=== PATIENT | female | born 1995 | race Two or more races ===

== ENCOUNTER 2024-12-13 11:51 | Inpatient (IN) | payer MEDICAID, OTHER ==
[2024-12-10 15:34] VITALS: PULSE 71
[~2024-12-13] VITALS: Ht 167.6 cm; Wt 48.5 kg
[2024-12-13] MEDS: levETIRAcetam 1000 mg/100ml 100 ML IV ONE (12:00)
--- NOTE | 2024-12-13 12:00 | ED.PDOC ---
History of Present Illness HPI Comments 29-year-old female with PMHx Seizures brought in by EMS presents with a chief complaint of seizure activity x 15 minutes ago. 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 Witnesses state that seizure lasted approximately 1 minute. Patient mentions that she take Keppra and has a neurolog ist. Last seizure was in June 2024. All vital signs stable. 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: Denies all DATA OPERATIONS DIRECTOR Hx Family History Family History: Reviewed,noncontributory to illness Social History Smoker: Non-Smoker Alcohol: Occasionally Drugs: Marijuana Lives In: Home Constitutional: denies: chills, diaphoresis, fatigue, fever, malaise, sweats, weakness, others EENTM: denies: blurred vision, double vision, ear bleeding, ear discharge, ear drainage, ear pain, ear ringing, eye pain, eye redness, hearing loss, mouth pain, mouth swelling, nasal discharge, nose bleeding, nose congestion, nose pain, photophobia, tearing, throat pain, throat swelling, voice changes, others Respiratory: denies: cough, hemoptysis, orthopnea, SOB at rest, shortness of breath, SOB with excertion, stridor, wheezing, others Cardiovascular: denies: chest pain, dizzy spells, diaphoresis, Dyspnea on exertion, edema, irregular heart beat, left arm pain, lightheadedness, palpitations, PND, syncope, others Gastrointestinal: denies: abdomen distended, abdominal pain, blood streaked bowels, constipated, diarrhea, dysphagia, difficulty swallowing, hematemesis, melena, nausea, poor appetite, poor fluid intake, rectal bleeding, rectal pain, vomiting, others Genitourinary: denies: abnormal vagina bleeding, burning, dyspareunia, dysuria, flank pain, frequency, hematuria, incontinence, pain, , vagina discharge, urgency, others Neurological: reports: seizure; denies: dizziness, fainting, headache, left sided numbness, left sided weakness, numbness, paresthesia, pre-existing deficit, right sided numbness, right sided weakness, speech problems, tingling, tremors, weakness, others Musculoskeletal: denies: back pain, gout, joint pain, joint swelling, muscle pain, muscle stiffness, neck pain, others Integumetry: denies: bruises, change in color, change in hair/nails, dryness, laceration, lesions, lumps, rash, wounds, others Allergic/Immunocompromised: denies: Difficulty Healing, Frequent Infections, Hives, Itching, others Hematologic/Lymphatic: denies: anemia, blood clots, easy bleeding, easy bruising, swollen glands, others Endocrine: denies: excessive hunger, excessive sweating, excessive thirst, excessive urination, flushing, intolerance to cold, intolerance to heat, unexplained weight gain, unexplained weight loss, others Psychiatric: denies: anxiety, bipolar disorder, depression, hopeless, panic disorder, schizophrenia, sleepless, suicidal, others All Other Systems: Reviewed and Negative Physical Exam General Appearance: No Apparent Distress HEENT: Normal ENT Inspection, Pharynx Normal, TMs Normal Neck: Full Range of Motion, Non-Tender, Normal, Normal Inspection Respiratory: Chest Non-Tender, Lungs Clear, No Accessory Muscle Use, No Respiratory Distress, Normal Breath Sounds Cardiovascular: No Edema, No JVD, No Murmur, No Gallop, Normal Peripheral Pulses, Regular Rate/Rhythm Breast Exam: Deferred Gastrointestinal: No Organomegaly, Non Tender, No Pulsatile Mass, Normal Bowel Sounds, Soft Genitalia: Deferred Pelvic: Deferred Rectal: Deferred Extremities: No calf tenderness, Normal capillary refill, Normal inspection, Normal range of motion, Non-tender, No pedal edema Musculoskeletal : Apperance: Normal Neurologic: Alert, 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 Was a procedure done?: No Differential Dx Considerations may include: Breakthrough seizure, headache X-Ray, Labs, Meds, VS Vital Signs Date Time Temp Pulse Resp B/P (MAP) Pulse Ox O2 Delivery O2 Flow Rate FiO2 12/13/24 12:31 98.7 102 18 130/78 (95) 99 Lab Test 12/13/24 12:30 Range/Units POC Glucose 118 H 70-106 mg/dl Current Medications Medications (Trade) Dose Ordered Sig/Sonia Route Start Time Stop Time Status Last Admin Levetiracetam 100 ml @ 400 mls/hr ONCE ONCE IV 12/13/24 12:00 12/13/24 12:14 DC 12/13/24 12:00 The patient was being given acetaminophen 650 mg for her headache The patient was given 1 g of Keppra IV piggyback We did advise the patient that sometimes the marijuana can lower the threshold for seizures The mother is at bedside and will be taking her home The patient will continue taking her Keppra at 1750 mg twice a day. The patient was completely at baseline at this time The patient is going to contact her neurologist upon being discharged Time of 1ST Reevaluation: 12:23 Reevaluation 1ST: Unchanged Patient Education/Counseling: Diagnosis, Treatment, Prognosis, Need For Follow Up Family Education/Counseling: Diagnosis, Treatment, Prognosis, Need For Follow Up Departure 1 Departure Time of Disposition: 13:40 Impression: Primary Impression: Breakthrough seizure Disposition: 01 HOME / SELF CARE / HOMELESS Condition: Fair Discharged With: Self, Relative (Mother) Critical Care Note Critical Care Time?: No Stability Stability form required: No Heart Score Heart Score: Heart Score Response (Comments) Value History N/A 0 EKG N/A 0 Age N/A 0 Risk Factors N/A 0 Troponin N/A 0 Total 0 I personally scribed for HARLEY SPENCER MD ([email or web address]) on 12/13/24 at 12:00. Electronically submitted by Thien Sharma ([email or web address]). HARLEY SPENCER MD Dec 13, 2024 12:00
[2024-12-13 13:48] VITALS: PULSE 79; RESP 93; O2SAT 94
[2024-12-13] MEDS: ACETAMINOPHEN 325 MG TAB PO ONE (13:57)
[2024-12-13] MEDS: LORazepam 2MG/ML-1ML VIAL ONE ×2 (14:35)
[2024-12-13] MEDS: LORazepam 2MG/ML-1ML VIAL IV ONE (15:11)
[2024-12-13 17:56] LABS: Urine Bacteria None Seen /hpf (None Seen)
[2024-12-13 18:28] LABS: Urine Blood Negative /uL (Negative); Urine Clarity Clear (Clear); Urine Color Light-Yellow (Yellow); Urine Mucus FEW (None Seen); Urine Protein, UAD TRACE (Negative); Urine Specific Gravity 1.021 (1.001-1.035); Urine Squamous Epithelial Cell FEW /hpf (<5); Urine Urobilinogen Normal (Negative); Urine WBC 1 /HPF (0-5); Urine pH 6.5 (5.0-9.0)
--- NOTE | 2024-12-13 19:16 | ECG ---
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
[2024-12-13 19:30] VITALS: O2SAT 94
[2024-12-13 21:47] LABS: Basophils # (auto) 0 10 ^3/uL (0-0.2); Basophils % (auto) 0.4 % (0.0-2.0); Eosinophils # (auto) 0.1 10 ^3/uL (0-0.8); Eosinophils % (auto) 0.9 % (0.0-7.0); Hematocrit 40.4 % (36.0-46.0); Hemoglobin 13.4 g/dL (12.2-16.2); Lymphocytes # (auto) 1.7 10 ^3/uL (0.4-5.4); Lymphocytes % (auto) 17.7 % (10.0-50.0); Mean Corpuscular Hgb Conc. 33.2 g/dL (32.0-36.0); Mean Corpuscular Volume 90.5 fL (80.0-100.0); Monocytes # (auto) 0.4 10 ^3/uL (0-1.3); Neutrophils # (auto) 7.5 10 ^3/uL (1.6-8.6); Nucleated Red Blood Cells % 0.1 %; Platelet Count (auto) 276 10^3/uL (140-450); Red Blood Cells 4.46 10^6/uL (4.0-5.20); Red Cell Distribution Width 12.8 % (11.8-14.3); White Blood Cell 9.7 10^3/uL (4.4-10.8)
[2024-12-13 21:50] LABS: Chloride 105 mmol/L (98-107); Potassium 3.9 mmol/L (3.5-5.1); Sodium 136 mmol/L (136-145)
[2024-12-13 21:51] LABS: Anion Gap 8 (5-15); Calcium 9.3 mg/dL (8.7-10.4); Carbon Dioxide 23 mmol/L (20-31)
--- NOTE | 2024-12-13 21:53 | DVH ---
CT BRAIN WITHOUT CONTRAST HISTORY: seizures TECHNIQUE: Axial scans were obtained from the skull base through the vertex without contrast. Sagitta l and coronal reformats were generated. One or more of the following radiation dose reduction techniq ues were used for this examination: automated exposure control, adjustment of the mA and/or kV accord ing to patient size, use of iterative reconstruction technique. COMPARISON: At the time of this review, no prior studies are available for direct comparison. FINDINGS: No acute intracranial hemorrhage or evidence of large vessel territorial infarction identified at thi s time. No midline shift. The basilar cisterns are patent. Phillips-white differentiation appears relat ively preserved. Patchy mucosal thickening in the visualized ethmoidal, maxillary and left sphenoidal sinus. The mast oid air cells are clear. No grossly displaced calvarial fracture is identified. IMPRESSION: No acute intracranial findings. If there is persistent clinical concern, follow-up MRI may be obtain ed to further evaluate. Partially imaged sinus changes which may be sequelae of sinusitis.
[2024-12-13 21:56] LABS: BUN/Creatinine Ratio 11.9 (10.0-20.0); Glucose 88 mg/dL (74-106)
[2024-12-13 22:06] LABS: Blood Urea Nitrogen 7 mg/dL (9-23)
[2024-12-13 22:06] LABS: Amphetamine Screen, Urine Neg (NEGATIVE); Barbiturate Scree,Urine Neg (NEGATIVE); Benzodiazephine Screen, Urine Neg (NEGATIVE); Cannabinoid Screen, Urine Pos (NEGATIVE); Cocaine Screen, Urine Neg (NEGATIVE); Opiate Scree,Urine Neg (NEGATIVE); Phencyclidine Screen, Urine Neg (NEGATIVE)
[2024-12-13] MEDS ORDERED: ONDANSETRON HCL 4 MG/2 ML VIAL IV PRN (22:30)
[2024-12-13] MEDS ORDERED: ACETAMINOPHEN 325 MG TAB PO PRN (22:30)
--- NOTE | 2024-12-13 22:47 | DVHINCON2 ---
Date of service: Dec 13, [address] Montalvo Reason for Consultation Seizure History of Present Illness Ms. Dover is a 29 years old right handed female with a history of migraine headache, seizure, the patient was brought to the [facility] on 12/13/2024 with a chief company of seizure activity rate at this time, she was alert and fully oriented, she provided the following history She was members at working, but the next memory was waking up in the emergency room, with mild tongue biting, and she was said to have seizure. When she was about to be discharge, she was another one in the ER. Since 2016, the patient was has periodic event where she has loss of consciousness, shaking all over body, eyes rolling back, sometimes with tongue biting/incontinence. She has been seen by Dr. Hayes, a local neurologist, and after EEG, MR brain scan, she was diagnosed with seizure disorder in 2022, and the patient has been on Keppra 750 mg b.i.d. since, which may not help the seizure at all. The patient was once on Vimpat 100 mg b.i.d. with better seizure control however the medicine was discontinued because she need her baby. She wants to return to Vimpat. She was seizure once a while, the last time she was seizure was in May 2024, she had 2-3 seizures in 2023 She was periodic one-sided intense headache with photophobia, sonophobia, nausea, her headache last for a few hours, and happens at least twice weekly, the patient was said to have migraine headache, she was on Imitrex 100 mg q.2 hours p.r.n.,, Qulipta 60 mg daily UDS, 12/13/2024: Cannabinoids Urinalysis, 12/13/2024: Unremarkable CBC, 12/13/2024: Unremarkable BMP, 12/13/2024: Unremarkable CT head, 12/13/2024: No acute intracranial findings. If there is persistent cl inical concern, follow-up MRI may be obtained to further evaluate. Partially imaged sinus changes which may be sequelae of sinusitis. Past Medical History Seizure, migraine Past Surgical History Ectopic surgery Family History Hypertension, diabetes Social History She was tobacco smoker, she uses marijuana, no history of drug or alcohol abuse Current Medications Current Medications Medications (Trade) Dose Ordered Sig/Sonia Route PRN Reason Start Time Stop Time Status Last Admin Levetiracetam 100 ml @ 400 mls/hr BID IV 12/14/24 10:00 UNV Ondansetron HCl (Zofran) 4 mg Q6HPRN PRN IV NAUSEA OR VOMITING 12/13/24 22:30 UNV Acetaminophen (Tylenol Tablet) 650 mg Q6HPRN PRN PO PAIN SCALE 1 THRU 6 12/13/24 22:30 UNV Famotidine (Pepcid Tablet) 20 mg DAILY PO 12/14/24 10:00 UNV Review of Systems As above, the other systems are negative Vital Signs Vital Signs Date Time Temp Pulse Resp B/P (MAP) Pulse Ox O2 Delivery O2 Flow Rate FiO2 12/13/24 20:00 91 12/13/24 20:00 98.2 12 107/64 (78) 100 98.2 12/13/24 19:30 Room Air* 0 21 Physical Exam GENERAL EXAM: General: the patient is well developed and nourished. No acute distress. HEENT: Normocephalic, neck is supple, no carotid bruits. No mass. RESPIRATORY: Normal respiratory effort with symmetrical lung expansion. Lungs clear to auscultation. CARDIOVASCULAR: Regular rate and rhythm with no murmurs. S1, S2. ABDOMEN: Soft, nontender, normal bowel sound NEUROLOGICAL: MENTAL STATUS: Awake and alert. Oriented to person, place, time and general circumstances. Able to give personal historu SPEECH, LANGUAGE, HIGHER CORTICAL FUNCTION: no aphasia or dysathria. CRANIAL NERVES: #2: Intact visual jacques to confrontation. The optic discs were sharp. #3,4,6: Pupils are equal, round and reactive. EOMs full and conjugate. No nystagmus. #5: Facial sensation intact in all three divisions bilaterally. Mandibular strength intact. #7: Facial muscles symmetrical and strength intact. #8: Hearing grossly normal to voice. #9,10: Uvula and soft palate rise in the midline. Swallow and voice are normal. #11: Trapezius and sternomastoid strength intact bilaterally. #12: Tongue midline. No fasciculations or atrophy. SENSATION: Sensation to touch and pinprick is normal. MOTOR: Normal tone in the upper and lower extremity. Normal muscle bulk. No fasciculations. No abnormal movements or posturing. Muscle strength of the major groups in the upper extremities is 5/5. Muscle strength of the major groups in the lower extremities is 5/5. REFLEXES: Deep tendon reflexes normal and symmetrical. No pathological reflexe s. CEREBELLAR/COORDINATION: Finger to nose and heel to rodgers are normal bilaterally. GAIT/STATION: deferred. Labs/Diagnostic Data Labs Test 12/13/24 21:20 12/13/24 17:40 12/13/24 12:30 Range/Units White Blood Count 9.7 4.4-10.8 10^3/uL Red Blood Count 4.46 4.0-5.20 10^6/uL Hemoglobin 13.4 12.2-16.2 g/dL Hematocrit 40.4 36.0-46.0 % Mean Corpuscular Volume 90.5 80.0-100.0 fL Mean Corpuscular Hemoglobin 30.0 28.0-32.0 pg Mean Corpuscular Hemoglobin Concent 33.2 32.0-36.0 g/dL Red Cell Distribution Width 12.8 11.8-14.3 % Platelet Count 276 140-450 10^3/uL Mean Platelet Volume 7.7 6.9-10.8 fL Neutrophils (%) (Auto) 77.0 37.0-80.0 % Lymphocytes (%) (Auto) 17.7 10.0-50.0 % Monocytes (%) (Auto) 4.0 0.0-12.0 % Eosinophils (%) (Auto) 0.9 0.0-7.0 % Basophils (%) (Auto) 0.4 0.0-2.0 % Neutrophils # (Auto) 7.5 1.6-8.6 10 ^3/uL Lymphocytes # (Auto) 1.7 0.4-5.4 10 ^3/uL Monocytes # (Auto) 0.4 0-1.3 10 ^3/uL Eosinophils # (Auto) 0.1 0-0.8 10 ^3/uL Basophils # (Auto) 0 0-0.2 10 ^3/uL Nucleated Red Blood Cells 0.1 % Sodium Level 136 136-145 mmol/L Potassium Level 3.9 3.5-5.1 mmol/L Chloride Level 105 98-107 mmol/L Carbon Dioxide Level 23 20-31 mmol/L Anion Gap 8 5-15 Blood Urea Nitrogen 7 L 9-23 mg/dL Creatinine 0.59 0.550-1.02 mg/dL Glomerular Filtration Rate Calc 123 >90 mL/min BUN/Creatinine Ratio 11.9 10.0-20.0 Serum Glucose 88 74-106 mg/dL Calcium Level 9.3 8.7-10.4 mg/dL Urine Color Light-yellow Yellow Urine Clarity Clear Clear Urine pH 6.5 5.0-9.0 Urine Specific [place] 1.021 1.001-1.035 Urine Protein Trace H Negative Urine Ketones Trace Negative Urine Blood Negative Negative /uL Urine Nitrite Negative Negative Urine Bilirubin Negative Negative Urine Urobilinogen Normal Negative mg/dL Urine Leukocyte Esterase Negative Negative /uL Urine RBC None seen 0 - 4 /hpf Urine Microscopic WBC 1 0-5 /HPF Urine Squamous Epithelial Cells Few <5 /hpf Urine Bacteria None seen None Seen /hpf Urine Mucus Few None Seen Urine Glucose Normal Normal mg/dL Urine Test Negative Negative Urine Opiates Screen Neg NEGATIVE Urine Fentanyl Screen Neg NEGATIVE Urine Barbiturates Screen Neg NEGATIVE Urine Phencyclidine Screen Neg NEGATIVE Urine Amphetamines Screen Neg NEGATIVE Urine Benzodiazepines Screen Neg NEGATIVE Urine Cocaine Screen Neg NEGATIVE Urine Cannabinoids Screen Pos NEGATIVE POC Glucose 118 H 70-106 mg/dl Assessment Grand mal seizure Migraine headache Plan/Recommendation Monitoring Supportive treatment Telemetry Keppra 750 mg b.i.d. Vimpat 50 mg b.i.d. Ativan for seizure breakthrough Imitrex 100 mg q.2 hours p.r.n. for headache Qulipta 60 mg q.d.(sample provided) She does not drive Follow up with her doctors and Dr. Freddy GARCIA on discharge More recommendation per clinical course This medical document was created using an electronic medical record system with [email or web address] dictation system. Although this document has been carefully reviewed, there may still be some phonetic and typographical errors. These areas are purely typographical due to imperfections of the software programs, and do not reflect any compromise in the patient's medical care. Plan discussed with: Patient, Spouse, Other TOAN MANE MD Dec 13, 2024 22:47
[2024-12-14] VITALS (9 sets, daily range): BP systolic 96–107; BP diastolic 65–75; PULSE 67–99; RESP 16–20; TEMP 97.6–98.7; O2SAT 94–99
--- NOTE | 2024-12-14 00:33 | DVHHP2 ---
Admitting Diagnosis: Recurrent seizures History of Present Illness History Source: Patient Exam Limitations: No limitations HPI Ms. Dover is a 29 years old female with a history of migraine headache, seizure, who presented to the hospital with a chief complaint of seizure activity at this time, she was alert and fully oriented, she provided the following history, Patient remembers she was at work, but the next memory was waking up in the emergency room, with mild tongue biting, and she was said to have a seizure. When she was about to be discharge from the ER , patient had another witnessed seizure in the ER. Patient reports migraine headaches, patient denies blurry vision, dizziness, lightheadedness, nausea, vomiting. Patient admitted for further evaluation. Home Meds Reported Medications Levetiracetam (Keppra) 500 Mg Tab, 1750 MG PO BID for 30 Days, MG 12/14/24 Sumatriptan Succinate (Sumatriptan Succinate) 100 Mg Tab, 100 MG PO, MG 12/14/24 Folic Acid (Folic Acid) 1 Mg Tab, 1 DAILY 12/14/24 Naproxen (NAPROSYN TABLET) 500 Mg Tb, 1 12/14/24 Baclofen (Baclofen) 10 Mg Tab, 1 12/14/24 Atogepant (Qulipta) 60 Mg Tab 12/14/24 Levetiracetam (Levetiracetam) 750 Mg Tab, 1 12/14/24 Past Medical History Cardiac: No pertinent Hx Pulmonary: No pertinent Hx Central Nervous System: Seizure GI: No pertinent Hx Hemotology/Oncology: No pertinent Hx Hepatobiliary: No pertinent Hx Psychiatric: No pertinent Hx Musculoskeletal: No pertinent Hx Rheumotologic: No pertinent Hx Infectious Disease: No peritnent Hx ENT: No pertinent Hx Renal/: No pertinent Hx Endocrine: No pertinent Hx Dermatology: No pertinent Hx Smoker: No Hx (Negative) Alocohol: None Drugs: Marijuana Lives with: With family Domestic Violence: Neg Review of Systems Constitutional: Other (headaches, seizures ) Ears, Nose, & Throat: No symptom reported Eyes: No symptom reported Pulmonary/Respiratory: No symptom reported Cardiovascular: No symptom reported Gastrointestinal: No symptom reported Genitourinary: No symptom reported Musculoskeletal: No symptom reported Skin: No symptom reported Psychiatric: No symptom reported Endocrine: No symptom reported Hemotologic/Lymphatic: No symptom reported H&P Exam Vital Signs Vital Signs Date Time Temp Pulse Resp B/P (MAP) Pulse Ox O2 Delivery O2 Flow Rate FiO2 12/14/24 00:00 71 12/13/24 22:00 20 113/71 (85) 96 12/13/24 20:00 98.2 98.2 12/13/24 19:30 Room Air* 0 21 General Appeara: Well developed, Well nourished, Normal Appearance Head Exam: Normal inspection Neck Exam: Normal inspection, Non-tender, Normal alignment Eye Exam: bilateral eye Normal inspection, bilateral eye PERRL, bilateral eye EOMI Ear Exam: bilateral ear Auricle normal Nasal Exam: Normal inspection Mouth: Normal Inspection Pulmonary/Respiratory: Normal inspection, Normal breath sounds, Chest non- tender, Lungs clear Cardiovascular/Chest: Normal inspection, Regular rate, Normal Rhythm Peripheral Pulses: 2+ dorsalis pedis (R), 2+ dorsalis pedis (L), 2+ Radial (R), 2+ Radial (L) Abdominal Exam: Normal bowel sounds, Soft Rectal Exam: Deferred Back Exam: Normal inspection Pelvic Exam: 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 Exam: Normal hearing, Normal speech, PERRL Motor/Sensory: Normal sensory function, Normal motor function Neuro/Mental St: Alert, Oriented Thoughts/Psych: Normal thought pattern Labs/Xrays Labs Test 12/13/24 21:20 12/13/24 17:40 12/13/24 12:30 Range/Units White Blood Count 9.7 4.4-10.8 10^3/uL Red Blood Count 4.46 4.0-5.20 10^6/uL Hemoglobin 13.4 12.2-16.2 g/dL Hematocrit 40.4 36.0-46.0 % Mean Corpuscular Volume 90.5 80.0-100.0 fL Mean Corpuscular Hemoglobin 30.0 28.0-32.0 pg Mean Corpuscular Hemoglobin Concent 33.2 32.0-36.0 g/dL Red Cell Distribution Width 12.8 11.8-14.3 % Platelet Count 276 140-450 10^3/uL Mean Platelet Volume 7.7 6.9-10.8 fL Neutrophils (%) (Auto) 77.0 37.0-80.0 % Lymphocytes (%) (Auto) 17.7 10.0-50.0 % Monocytes (%) (Auto) 4.0 0.0-12.0 % Eosinophils (%) (Auto) 0.9 0.0-7.0 % Basophils (%) (Auto) 0.4 0.0-2.0 % Neutrophils # (Auto) 7.5 1.6-8.6 10 ^3/uL Lymphocytes # (Auto) 1.7 0.4-5.4 10 ^3/uL Monocytes # (Auto) 0.4 0-1.3 10 ^3/uL Eosinophils # (Auto) 0.1 0-0.8 10 ^3/uL Basophils # (Auto) 0 0-0.2 10 ^3/uL Nucleated Red Blood Cells 0.1 % Sodium Level 136 136-145 mmol/L Potassium Level 3.9 3.5-5.1 mmol/L Chloride Level 105 98-107 mmol/L Carbon Dioxide Level 23 20-31 mmol/L Anion Gap 8 5-15 Blood Urea Nitrogen 7 L 9-23 mg/dL Creatinine 0.59 0.550-1.02 mg/dL Glomerular Filtration Rate Calc 123 >90 mL/min BUN/Creatinine Ratio 11.9 10.0-20.0 Serum Glucose 88 74-106 mg/dL Calcium Level 9.3 8.7-10.4 mg/dL Urine Color Light-yellow Yellow Urine Clarity Clear Clear Urine pH 6.5 5.0-9.0 Urine Specific [place] 1.021 1.001-1.035 Urine Protein Trace H Negative Urine Ketones Trace Negative Urine Blood Negative Negative /uL Urine Nitrite Negative Negative Urine Bilirubin Negative Negative Urine Urobilinogen Normal Negative mg/dL Urine Leukocyte Esterase Negative Negative /uL Urine RBC None seen 0 - 4 /hpf Urine Microscopic WBC 1 0-5 /HPF Urine Squamous Epithelial Cells Few <5 /hpf Urine Bacteria None seen None Seen /hpf Urine Mucus Few None Seen Urine Glucose Normal Normal mg/dL Urine Test Negative Negative Urine Opiates Screen Neg NEGATIVE Urine Fentanyl Screen Neg NEGATIVE Urine Barbiturates Screen Neg NEGATIVE Urine Phencyclidine Screen Neg NEGATIVE Urine Amphetamines Screen Neg NEGATIVE Urine Benzodiazepines Screen Neg NEGATIVE Urine Cocaine Screen Neg NEGATIVE Urine Cannabinoids Screen Pos NEGATIVE POC Glucose 118 H 70-106 mg/dl Assessment/Plan Problem List: (1) Breakthrough seizure (2) Migraine headache Plan This is a 29 yo female with a history of seizures who presents to the hospital with a witnessed seizure lasting approximately 1 minute , status post epilepticus. Patient was found to have 1. Grand mal seizure 2. Migraine headache PLAN Admit Telemetry unit Neurology consultation appreciated Antiseizure medications as per consult GI ppx Protonix DVT ppx Lovenox Seizure precautions Aspiration precautions Fall precautions Analgesic as needed Discussed all above with patient who verbalized agreement and understanding of care plan. All questions were answered. Discussed assessment and care plan with supervising MD. Plan discussed with: Patient, Other Code Visit Code Visit Total Time (mins): 45 Additional Comments Additional Comments Additional Comments Patient was seen and evaluated by me. I agree with the assessment and plan as outlined by my nurse practitioner. LUCA SPRAGUE Dec 14, 2024 00:33 JENNIFER MORGAN MD Dec 14, 2024 16:28
[2024-12-14] MEDS ORDERED: NAP500T (00:34)
[2024-12-14] MEDS ORDERED: BACL10TA (00:34)
[2024-12-14] MEDS ORDERED: LEVE750T3 (00:34)
[2024-12-14] MEDS ORDERED: ATOG60TA (00:34)
[2024-12-14] MEDS ORDERED: SUMA100T15 PO (00:34)
[2024-12-14] MEDS ORDERED: FOLI-119 (00:34)
[2024-12-14] MEDS: SUMAtriptan SUCCINATE 25 MG TAB PO PRN (05:28)
[2024-12-14] MEDS: LACOSAMIDE 50 MG TAB PO SCH (09:34)
[2024-12-14] MEDS: levETIRAcetam 500 MG TAB PO SCH ×2 (09:35→21:05)
[2024-12-14] MEDS: FAMOTIDINE 20 MG TAB PO SCH (09:35)
[2024-12-14] MEDS ORDERED: levETIRAcetam 1000 mg/100ml 100 ML IV SCH (10:00)
[2024-12-14] MEDS ORDERED: levETIRAcetam 500 MG TAB PO SCH ×2 (12:15→22:00)
[2024-12-14] MEDS ORDERED: LEVE500T40 PO (15:05)
[2024-12-14] MEDS: levETIRAcetam 500 MG TAB PO ONE (15:14)
--- NOTE | 2024-12-14 18:10 | DVHPN2 ---
Progress Note - Dictate Date Seen: Dec 14, 2024 Medical Necessity Reason Pt with a Central, PICC or Fol: No Subjective Ms. Dover is a 29 years old right handed female with a history of migraine headache, seizure, the patient was brought to the [facility] on 12/13/2024 with a chief complaint of seizure activity I have seen and examined the patient, I have discussed with his nurse this morning, and in the evening, she was doing fine, no new seizure activity She tells me that she was on Keppra 1750 mg daily No new complaints UDS, 12/13/2024: Cannabinoids Urinalysis, 12/13/2024: Unremarkable CBC, 12/13/2024: Unremarkable BMP, 12/13/2024: Unremarkable CT head, 12/13/2024: No acute intracranial findings. If there is persistent clinical concern, follow-up MRI may be obtained to further evaluate. Partially imaged sinus changes which may be sequelae of sinusitis. vital signs Vital Sign Date Time Temp Pulse Resp B/P (MAP) Pulse Ox O2 Delivery O2 Flow Rate FiO2 12/14/24 13:00 98.3 71 17 101/65 (77) 97 98.3 12/14/24 08:00 Room Air* 0 21 Total Intake and Output 12/13/24 12/13/24 12/14/24 15:00 23:00 07:00 Intake Total 200 ml Balance 200 ml medications Current Medications Medications Dose Ordered Sig/Sonia Route Start Time Stop Time Status Last Admin Dose Admin Ondansetron HCl 4 mg Q6HPRN PRN IV 12/13/24 22:30 Acetaminophen 650 mg Q6HPRN PRN PO 12/13/24 22:30 Famotidine 20 mg DAILY PO 12/14/24 10:00 12/14/24 09:35 20 MG Patient Own Medication 50 mg BID PO 12/14/24 10:00 UNV Patient Own Medication 60 mg DAILY PO 12/14/24 10:00 12/14/24 10:00 60 MG Sumatriptan Succinate 100 mg Q2HP PRN PO 12/13/24 23:45 12/14/24 05:28 100 MG Lacosamide 50 mg BID PO 12/14/24 10:00 12/14/24 09:34 50 MG Levetiracetam 1,750 mg BID PO 12/14/24 22:00 objective General: the patient is well developed and nourished. No acute distress. MENTAL STATUS: Awake and alert. Oriented to person, place, time and general circumstances. Able to give personal historu SPEECH, LANGUAGE, HIGHER CORTICAL FUNCTION: no aphasia or dysathria. CRANIAL NERVES: Pupils are equal, round and reactive. EOMs full and conjugate. No nystagmus. Facial sensation intact in all three divisions bilaterally. Mandibular strength intact. Facial muscles symmetrical and strength intact. SENSATION: Sensation to touch and pinprick is normal. MOTOR: Normal tone in the upper and lower extremity. Normal muscle bulk. No fasciculations. No abnormal movements or posturing. Muscle strength of the major groups in the extremities is 5/5. REFLEXES: Deep tendon reflexes normal and symmetrical. No pathological reflexes. CEREBELLAR/COORDINATION: Finger to nose and heel to rodgers are normal bilaterally. GAIT/STATION: deferred laboratory and microbiology Laboratory Tests 12/13/24 21:20 Test 12/13/24 21:20 Range/Units Serum Glucose 88 74-106 mg/dL Problem List Grand mal seizure Assessment/Plan Monitoring Supportive treatment Telemetry Keppra 750 mg AM Keppra 1000 mg in the evening Vimpat 50 mg b.i.d. Ativan for seizure breakthrough Imitrex 100 mg q.2 hours p.r.n. for headache Qulipta 60 mg q.d.(sample provided) She does not drive Follow up with her doctors and Dr. Freddy GARCIA on discharge More recommendation per clinical course Okay to discharge in the morning if no more seizure activity overnight from a neurologic point of view This medical document was created using an electronic medical record system with [employer] dictation system. Although this document has been carefully reviewed, there may still be some phonetic and typographical errors. These areas are purely typographical due to imperfections of the software programs, and do not reflect any compromise in the patient's medical care. Prognosis poor Plan discussed with: Patient, Other TOAN MANE MD Dec 14, 2024 18:10
[2024-12-15 01:00] VITALS: BP 98/69; PULSE 74; RESP 18; TEMP 98; O2SAT 98
[2024-12-15 05:00] VITALS: BP 113/79; PULSE 60; RESP 18; TEMP 98.2; O2SAT 100
[2024-12-15 08:00] VITALS: PULSE 83; PULSE 86; RESP 20; O2SAT 98
[2024-12-15 09:00] VITALS: BP 107/65; PULSE 83; RESP 20; TEMP 97.6; O2SAT 98
--- NOTE | 2024-12-15 16:29 | DVHDS2 ---
Discharge Summary Date of Admission Dec 13, 2024 at 22:26 Date of Discharge: Dec 15, 2024 Labs/Diagnostic Data: Laboratory Results Test 12/13/24 21:20 12/13/24 17:40 12/13/24 12:30 White Blood Count 9.7 10^3/uL (4.4-10.8) Red Blood Count 4.46 10^6/uL (4.0-5.20) Hemoglobin 13.4 g/dL (12.2-16.2) Hematocrit 40.4 % (36.0-46.0) Mean Corpuscular Volume 90.5 fL (80.0-100.0) Mean Corpuscular Hemoglobin 30.0 pg (28.0-32.0) Mean Corpuscular Hemoglobin Concent 33.2 g/dL (32.0-36.0) Red Cell Distribution Width 12.8 % (11.8-14.3) Platelet Count 276 10^3/uL (140-450) Mean Platelet Volume 7.7 fL (6.9-10.8) Neutrophils (%) (Auto) 77.0 % (37.0-80.0) Lymphocytes (%) (Auto) 17.7 % (10.0-50.0) Monocytes (%) (Auto) 4.0 % (0.0-12.0) Eosinophils (%) (Auto) 0.9 % (0.0-7.0) Basophils (%) (Auto) 0.4 % (0.0-2.0) Neutrophils # (Auto) 7.5 10 ^3/uL (1.6-8.6) Lymphocytes # (Auto) 1.7 10 ^3/uL (0.4-5.4) Monocytes # (Auto) 0.4 10 ^3/uL (0-1.3) Eosinophils # (Auto) 0.1 10 ^3/uL (0-0.8) Basophils # (Auto) 0 10 ^3/uL (0-0.2) Nucleated Red Blood Cells 0.1 % Sodium Level 136 mmol/L (136-145) Potassium Level 3.9 mmol/L (3.5-5.1) Chloride Level 105 mmol/L (98-107) Carbon Dioxide Level 23 mmol/L (20-31) Anion Gap 8 (5-15) Blood Urea Nitrogen 7 mg/dL (9-23) Creatinine 0.59 mg/dL (0.550-1.02) Glomerular Filtration Rate Calc 123 mL/min (>90) BUN/Creatinine Ratio 11.9 (10.0-20.0) Serum Glucose 88 mg/dL (74-106) Calcium Level 9.3 mg/dL (8.7-10.4) Urine Color Light-yellow (Yellow) Urine Clarity Clear (Clear) Urine pH 6.5 (5.0-9.0) Urine Specific Oden 1.021 (1.001-1.035) Urine Protein Trace (Negative) Urine Ketones Trace (Negative) Urine Blood Negative /uL (Negative) Urine Nitrite Negative (Negative) Urine Bilirubin Negative (Negative) Urine Urobilinogen Normal mg/dL (Negative) Urine Leukocyte Esterase Negative /uL (Negative) Urine RBC None seen /hpf (0 - 4) Urine Microscopic WBC 1 /HPF (0-5) Urine Squamous Epithelial Cells Few /hpf (<5) Urine Bacteria None seen /hpf (None Seen) Urine Mucus Few (None Seen) Urine Glucose Normal mg/dL (Normal) Urine Test Negative (Negative) Urine Opiates Screen Neg (NEGATIVE) Urine Fentanyl Screen Neg (NEGATIVE) Urine Barbiturates Screen Neg (NEGATIVE) Urine Phencyclidine Screen Neg (NEGATIVE) Urine Amphetamines Screen Neg (NEGATIVE) Urine Benzodiazepines Screen Neg (NEGATIVE) Urine Cocaine Screen Neg (NEGATIVE) Urine Cannabinoids Screen Pos (NEGATIVE) POC Glucose 118 mg/dl (70-106) Other Laboratory Tests 12/13/24 21:20 Final Diagnosis/Problems List 1. Grand mal seizures 2. Migraine headaches Discharge Disposition: Home Discharge Instruct/Medications Diet: Regular Activity: See Comment Activity comment: No driving while on seizure medications Follow Up/Referral: Follow up with the PCP and Neurology in one week Medications: Continue Keppra 17 50 p.o. twice a day, add Vimpat 50 mg twice a day Discharge Statement: "Patient was advised to return to the ER or call 911 if any headaches, dizziness, shortness of breath, chest pain, abdominal pain, bleeding, fevers, or worsening of medical condition. Patient was counseled about treatment plan, medications, possible side effects, patientverbalized understanding. All questions were answered to the best of my ability. This discharge took greater then 30 minutes in planning, reviewing documentation, counseling the patient, and discussing with other team members." ASSESSMENT ASSESSMENT Assessment 1. Grand mal seizures 2. Migraine headaches JENNIFER MORGAN MD Dec 15, 2024 16:29
[2024-12-15 16:37] VITALS: BP 109/52; PULSE 75; RESP 19; TEMP 98.8; O2SAT 96
== END 2024-12-15 17:08 | disposition home or self-care (01) | DRG 53 ==
LOC: ER 11:51 → EDBD 11:51 → TELE 22:26 → TELE-CENTR 23:33
PROVIDERS: ADMIT Nurse Practitioner Family; ATTEND Nurse Practitioner Family
DX: G40.401 Other generalized epilepsy and epileptic syndromes, not intractable, with status epilepticus (principal); F17.200 Nicotine dependence, unspecified, uncomplicated; G43.909 Migraine, unspecified, not intractable, without status migrainosus; Z82.49 Family history of ischemic heart disease and other diseases of the circulatory system; Z83.3 Family history of diabetes mellitus
CPT/HCPCS: 36415; 70450; 80048; 80307; 81001; 81025; 82962; 85025; 93005; 96365; 96375; G0378